=== PATIENT | female | born 1960 | race African-American/Black ===

== ENCOUNTER 2016-05-20 07:30 | Inpatient (IN) ==
--- NOTE | 2016-05-14 14:26 | EKG Report ---
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
[2016-06-03] MEDS ORDERED: DIAZEPAM 5 MG TABLET PO ONE (05:57)
[2016-06-03] MEDS ORDERED: FAMOTIDINE 20 MG TABLET PO ONE (05:57)
[2016-06-03] MEDS ORDERED: ceFAZolin 1,000 MG VIAL ONE (05:59)
[2016-06-03] MEDS ORDERED: SODIUM CHLORIDE 0.9% 250 ML IV SCH (06:00)
[2016-06-03] MEDS ORDERED: DIAZEPAM 5 MG TABLET ONE (06:33)
[2016-06-03] MEDS ORDERED: FAMOTIDINE 20 MG TABLET ONE (06:34)
--- NOTE | 2016-06-03 06:51 | History and Physical Update ---
History and Physical Update - History and Physical H&P was reviewed, the patient examined and there: are no changes in the patients condition since last H&P was completed.
[2016-06-03] MEDS ORDERED: BUPIVACAINE MPF 0.25% /EPI 30 ML VIAL ONE (06:53)
[2016-06-03] MEDS ORDERED: LIDOCAINE 1%/EPI INJ 20 ML VIAL ONE (06:53)
[2016-06-03] MEDS ORDERED: LIDOCAINE 2% 5 ML VIAL ONE (07:05)
[2016-06-03] MEDS ORDERED: ONDANSETRON 4 MG/2 ML VIAL ONE (07:05)
[2016-06-03] MEDS ORDERED: PROPOFOL 200 MG/20 ML VIAL IV ONE (07:05)
[2016-06-03] MEDS ORDERED: ROCURONIUM 100 MG/10 ML VIAL IV ONE (07:05)
[2016-06-03] MEDS ORDERED: TISSUE ADHESIVE 1 EACH APPLICATOR TOP ONE (07:43)
--- NOTE | 2016-06-03 08:16 | Fluoroscopy Report ---
Exam: FL cholangiogram in surgery Date: 06/03/2016 12:00 AM Comparison: None Indication: Abdomen pain Technique:[Fluoroscopy time of 20.8 seconds documented. 119 images obtained.] Findings: Nonionic contrast material was injected into the dilated bile ducts by Dr. Mandy FAITH. Multiple filling defects are identified including the cystic duct and CBD.. Contrast in the duodenum. Impression: Choledocholithiasis with associated dilatation of the bile ducts. PROCEDURE INTERPRETED AT [facility] DEPARTMENT OF RADIOLOGY Final Report Signed by: Dr. Donna Jarrell
[2016-06-03] MEDS ORDERED: MORPHINE 2 MG/1 ML SYRINGE IV PRN (08:21)
[2016-06-03] MEDS ORDERED: ONDANSETRON 4 MG/2 ML VIAL IV PRN ×2 (08:21→08:52)
--- NOTE | 2016-06-03 08:30 | Operative Note ---
Date of procedure: 06/03/16 Pre-op diagnosis: cholelithiasis with chronic cholecystitis Post-op diagnosis: other (cholelithiasis with choledocholithiasis) Procedure: Laparoscopic cholecystectomy with intraoperative cholangiogram and extensive lysis of perihepatic adhesions Findings and technique: After informed consent was obtained the patient was brought the operating room and placed in supine position. After successful induction with general anesthesia which was tolerated well hemodynamically patient abdomen was prepped and draped in usual sterile fashion. Local anesthesia was infiltrated at the umbilicus where an open technique was used and the inner the peritoneal cavity under direct vision the patient was noted to have extensive intra-abdominal adhesions above the umbilicus. These were carefully dissected free and a Amee cannula inserted and a pneumoperitoneum was established. Camera was inserted and the right upper quadrant visualized. There were extensive perihepatic adhesions which limited the mobility of the liver. These adhesions over the left and right lobes of the liver were sharply taken down. No bleeding occurred with this dissection. The patient had a very large redundant gallbladder was grasped and retracted upwards over the liver. The neck of the gallbladder was grasped and retracted laterally and the peritoneum over the neck of the gallbladder was incised. Patient had a long tapering neck of her gallbladder. The cystic artery was identified branching over the medial neck of the gallbladder. The common bile duct could be visualized medially. I dissected free the neck of the gallbladder and acchieved the critical view of safety before incising any structures. The gallbladder neck was incised and a cholangiogram then obtained under fluoroscopy which showed a large nonobstructing distal common bile duct stone. There was flow of contrast into the duodenum. The neck of the gallbladder was transected and I secured the gallbladder neck with a free tied chromic Endoloop. The gallbladder was dissected free from the liver bed after the cystic artery was triply clipped and divided. The gallbladder was placed in an Endo Catch bag and removed through the umbilical port site. Right upper quadrant was liberally irrigated suctioned dry and no bleeding or bile leakage noted. I did discuss this case with Dr. hernandez from GI and we have arranged for postoperative ERCP which I think would be preferable than a likely large open procedure in this patient with severe medical comorbidities. No bleeding was noted in the liver bed which was inspected and irrigated for about 5-10 minutes. The ports were removed and no bleeding noted from the port sites. Gas was evacuated from the abdomen and the fascial defect at the umbilicus closed with a running 0 Monocryl suture. This was a much more difficult procedure than usual because of the extensive perihepatic adhesions and the large size of the gallbladder. There was also adhesions at the umbilicus which had to be dealt with. These factors all added to the complexity and time associated with the case. These factors essentially doubled the expected operative time. She appeared to tolerate the procedure well however and had no apparent complications. Arrangements have been made for postoperative ERCP. Anesthesia: GETA, local Surgeon / Physician: Home Galvan III. Estimated blood loss: minimal Specimens: other (gallbladder) Condition: stable Disposition: PACU Discharge Plan - Discharge Medications No Action Hydrocodone/Acetaminophen [Hydrocodon-Acetaminophen 5-325] 1 each PO Q6H PRN PRN Reason: Pain traMADol TAB [Ultram] 1 tablet PO Q6H PRN PRN Reason: Pain Oxybutynin [Ditropan] 5 mg PO DAILY NIFEdipine [Nifedipine ER] 60 mg PO DAILY Hydroxychloroquine [Plaquenil] 200 mg PO BID predniSONE TAB [PredniSONE] 5 mg PO DAILY Pantoprazole Tab [Protonix Tab] 40 mg PO DAILY Losartan Potassium 50 mg PO DAILY Triamcinolone 0.1% Cream [Kenalog 0.1% Cream] 1 applic TOP BID Nebivolol [Bystolic] 10 mg PO BID - Follow Up or Referral - Forms/Instructions
--- NOTE | 2016-06-03 08:39 | Anesthesia ---
Anesthesia Post OP - Post Ansesthetic Evaluation Patient seen in post op: Yes Resp: within normal limits CV: within normal limits Mental: within normal limits Temp: within normal limits Mgke-Lo-Iybnbwkyo: within normal limits Nausea and Vomiting: within normal limits Pain: within normal limits
[2016-06-03] MEDS ORDERED: ACETAMINOPHEN 1,000 MG/100 ML VIAL IV ONE (08:41)
[2016-06-03] MEDS ORDERED: SEVOFLURANE 1 UNIT/15 MINUTE INH ONE (08:41)
[2016-06-03] MEDS ORDERED: fentaNYL 100 MCG/2 ML VIAL ONE (08:41)
[2016-06-03] MEDS ORDERED: MIDAZOLAM 2 MG/2 ML VIAL ONE (08:41)
[2016-06-03] MEDS ORDERED: LACTATED RINGERS 1,000 ML IV SCH (09:00)
[2016-06-03] MEDS: HYDROmorphone 2 MG/1 ML VIAL IV PRN ×2 (09:02→09:14)
[2016-06-03 11:19] LABS: Basophils % 0.2 % (0.0-0.8); Eosinophils # 0.1 10*3/uL (0.0-0.87); Eosinophils % 1.9 % (0.00-10.9); Hematocrit 39.4 VOL% (35.7-47.0); Hemoglobin 11.8 GM/DL (12.0-16.0); Immature Granulocytes % 0.4 %; Immature Granulocytes Absolute 0.02 #; Lymphocytes # 0.6 10*3/uL (1.4-4.0); Lymphocytes % 11.3 % (21.3-54.2); Mean Corpuscular HGB Conc 29.9 GM/DL (32-36); Mean Corpuscular Hemoglobin 26 PG (27-34); Mean Corpuscular Volume 88.1 FL (87-102); Mean Platelet Volume 11.1 FL (9.6-12.0); Monocytes # 0.1 10*3/uL (0.11-0.8); Monocytes % 1.7 % (1.7-12.7); Neutrophils # 4.6 10*3/uL (1.4-7.4); Neutrophils % 84.5 % (38.7-73.9); Platelet Count 203 T/CUMM (130-400); Red Blood Count 4.47 MC/CUMM (3.8-5.5); Red Cell Distribution Width 14.3 % (9.3-17.3); White Blood Count 5.4 T/CUMM (4-12)
[2016-06-03 11:48] LABS: Albumin 3.2 G/DL (3.4-5.0); Bilirubin,Total 0.4 MG/DL (0.2-1.0); Calcium 8.3 MG/DL (8.5-10.1); Osmolality,Calculated 290.7 MOS/KG (273-304); Potassium 4.1 MMOL/L (3.5-5.1); Total Protein 7.9 G/DL (6.4-8.3)
[2016-06-03] MEDS ORDERED: cefOXitin 1,000 MG in SODIUM CHLORIDE 0.9% 100 ML IV SCH (12:23)
--- NOTE | 2016-06-03 13:41 | Gastrointestinal Consult Note ---
Assessment and Plan (1) Choledocholithiasis Status: Acute Assessment and plan: 06/03-Several month history of abd pain with nausea, with findings of gallstones. Post op lap derrick today with findings on intraoperative cholangiogram of filling defects of cystic duct and CBD. Normal LFTs with elevated alk phos. Plan for ERCP tomorrow to further evaluate. Procedure details as well as risks discussed. Plan and addendum to follow by Dr Cervantes. Current Visit: Yes History of Present Illness Chief complaint: Choledocholithiasis History of present illness: Ms. Gutierrez is a 55 year old female who presented to the hospital for laparoscopic cholecystectomy. She states that she has had abdominal pain off and on for the past year with episodes of associated nausea and vomiting. She state the pain occurred mostly with eating with intermittent epigastric pain as well as nausea. The pain did not radiate to her back. She states she did feel better if she just did not eat. She denies any fever, chills or weight loss associated with this. She states that she was found several months ago to have gallstones and states at that time she was not ready to proceed with surgery. She underwent lap derrick today with intraoperative cholangiogram as well as extensive lysis of perihepatic lesions. The cholangiogram report showed filling defects of the cystic duct and the CBD and she was referred for ERCP. She is noted to have normal LFTS other than an elevated alkaline phosphatase at 169. Home Medications Medication Instructions Recorded Confirmed Type Hydrocodone/Acetaminophen 1 each PO Q6H PRN 02/20/15 06/03/16 History [Hydrocodon-Acetaminophen 5-325] Hydroxychloroquine [Plaquenil] 200 mg PO BID 02/20/15 06/03/16 History Losartan Potassium 50 mg PO DAILY 02/20/15 06/03/16 History NIFEdipine [Nifedipine ER] 60 mg PO DAILY 02/20/15 06/03/16 History Nebivolol [Bystolic] 10 mg PO BID 02/20/15 06/03/16 History Oxybutynin [Ditropan] 5 mg PO DAILY 02/20/15 06/03/16 History Pantoprazole Tab [Protonix Tab] 40 mg PO DAILY 02/20/15 06/03/16 History Triamcinolone 0.1% Cream [Kenalog 1 applic TOP BID 02/20/15 06/03/16 History 0.1% Cream] predniSONE TAB [PredniSONE] 5 mg PO DAILY 02/20/15 06/03/16 History traMADol TAB [Ultram] 1 tablet PO Q6H PRN 02/20/15 06/03/16 History Allergies Allergy/AdvReac Type Severity Reaction Status Date / Time No Known Allergies Allergy Verified 05/14/16 13:41 Medical,Surgical,& Family Hx - Medical History Cardio: History of: Cardiac Dysrhythmia (FAST HEARTRATE), CHF, Hypertension, Cardiovascular Problems (DR MANRIQUEZ. LAST VISIT 03/2016.) Neurology: No history of: Seizures HEENT: History of: Eye Problem (GLASSES, DRY EYES HX OF STEROID DROPS IN PAST) Rheumatology: History of;: Systemic Lupus Erythematosus Respiratory: History of: Bronchitis (PAST HX), Pneumonia (PAST HX), Respiratory Problems (CHRONIC COUGH. SEEING DR KIM 05/13/2015. FLU VAC- NO; PNEU-YES.) Renal: History of: Renal Failure (pt states that she is not dialysis. DR CANTU LAST VISIT 05/06/2016.) Genitourinary: History of: Recurring Urinary Tract Infections (LAST INFECTION .) Gastrointestinal: History of: GERD - Surgical History Abdominal Surgeries: Surgical HX of: Cholecystectomy, Colonoscopy (2011) Reproductive Surgeries: Surgical HX of;: Section (X4), Tubal Ligation - Family History Family History: Reports;: Family Hypertension - Social History Smoking Status: Never smoker Frequency of Alcohol Use: Frequently Type of Drug Use: None 12 point system: reviewed and no additional remarkable complaints except as stated - Constitutional Constitutional: Present: as per HPI - EENT Eyes: Present: as per HPI Ears: Present: as per HPI Nose, mouth and throat: Present: as per HPI - Cardiovascular Cardiovascular: Present: as per HPI - Respiratory Respiratory: Present: as per HPI - Gastrointestinal Gastrointestinal: Present: as per HPI, abdominal pain, nausea - Genitourinary Genitourinary: Present: as per HPI - Musculoskeletal Musculoskeletal: Present: as per HPI - Neurological Neurological: Present: as per HPI - Psychiatric Psychiatric: Present: as per HPI - Endocrine Endocrine: Present: as per HPI - Hematologic/Lymphatic Hematologic/Lymphatic: Present: as per HPI Exam - Constitutional Vitals: Period Temp Pulse Resp BP Sys/Ovalle Pulse Ox Last 24 Hr 97.7 F-98.6 F 77-92 16-27 114-148/82-105 95-100 General appearance: normal weight, no acute distress - Head Head exam: Present: normal inspection, normocephalic - Eye Eye exam: Present: other (lids and conjuncitva unremarkable). Absent: scleral icterus - ENT ENT exam: Present: normal exam, normal oropharynx - Neck Neck exam: Present: normal inspection - Respiratory Respiratory exam: Present: clear to auscultation bilaterally. Absent: rales, rhonchi, wheezes - Cardiovascular Cardiovascular exam: Present: regular rate and rhythm. Absent: diastolic murmur , JVD, systolic murmur - GI/Abdominal GI/Abdominal exam: Present: normal bowel sounds, tenderness, soft. Absent: ascites, distended, mass, organomegaly - Extremities Exam Extremities exam: Present: normal inspection, full ROM - Back Exam Back exam: Present: normal inspection - Neurological Exam Neurological exam: Present: alert, oriented X3 - Psychiatric Psychiatric exam: Present: normal affect, normal mood - Skin Skin exam: Present: normal color, warm, dry Results - Labs CBC & BMP: 06/03/16 10:27 06/03/16 10:27 Lab Results: I have reviewed the past 24 hour labs Quality Measures - VTE Contraindication to Pharmacological VTE Prophylaxis: High Risk of Bleeding
[2016-06-03 17:10] LABS: Hematocrit 39.9 VOL% (35.7-47.0); Hemoglobin 12.2 GM/DL (12.0-16.0)
[2016-06-03] MEDS: cefOXitin 1,000 MG in SODIUM CHLORIDE 0.9% 100 ML IV SCH ×2 (17:53→23:53)
[2016-06-04 01:24] LABS: Hematocrit 35.9 VOL% (35.7-47.0); Immature Granulocytes % 0.3 %; Immature Granulocytes Absolute 0.03 #; Lymphocytes # 0.6 10*3/uL (1.4-4.0); Lymphocytes % 6.4 % (21.3-54.2); Mean Corpuscular HGB Conc 30.6 GM/DL (32-36); Mean Corpuscular Hemoglobin 26 PG (27-34); Mean Corpuscular Volume 86.3 FL (87-102); Mean Platelet Volume 11.3 FL (9.6-12.0); Monocytes # 0.7 10*3/uL (0.11-0.8); Monocytes % 7.6 % (1.7-12.7); Neutrophils # 7.7 10*3/uL (1.4-7.4); Neutrophils % 85.7 % (38.7-73.9); Platelet Count 181 T/CUMM (130-400); Red Blood Count 4.16 MC/CUMM (3.8-5.5); Red Cell Distribution Width 14.3 % (9.3-17.3)
[2016-06-04] MEDS: cefOXitin 1,000 MG in SODIUM CHLORIDE 0.9% 100 ML IV SCH ×2 (05:52→11:42)
--- NOTE | 2016-06-04 07:35 | Family Practice Progress Note ---
Family Practice - PN: Subj Interval history: Patient is doing fine this morning states she is not having any increased abdominal pain. She denies nausea vomiting this morning she is scheduled for ERCP today and can probably go home later today barring complications. Exam (Progress Note) - Constitutional Vitals: Period Temp Pulse Resp BP Sys/Ovalle Pulse Ox Last 24 Hr 97.1 F-98.6 F 70-92 16-27 103-150/61-105 92-100 Exam: Objectively well-developed black female no acute distress. She is able give good history. She states she is hungry. Cardiovascular: Heart rate is regular there is no murmurs or gallops. Respiratory: Lungs clear to auscultation bilaterally. Abdomen: Abdomen soft and nontender Results - Labs CBC & BMP: 06/04/16 00:36 06/04/16 00:36 Lab Results: I have reviewed the past 24 hour labs Assessment and Plan (1) Choledocholithiasis Status: Acute Assessment and plan: 06/04/2016: Patient scheduled for ERCP today. Current Visit: Yes Quality Measures - VTE Contraindication to Pharmacological VTE Prophylaxis: High Risk of Bleeding
--- NOTE | 2016-06-04 11:05 | Event Note ---
She feels well. She has minimal pain. She is afebrile with stable vital signs and her abdomen is benign. She is for ERCP today.
--- NOTE | 2016-06-04 11:15 | Pathology Report from [facility] ---
ACCESSION # : [id number] PATIENT NAME : Lata Gutierrez ORDERING DR : HESHAM SINGH III, MD CLINICAL HX: Cholelithiasis POST-OP DX: Same SPECIMEN INFO: Gallbladder GROSS DESCRIPTION: The specimen is received in formalin labeled with the patient 's name Lata Gutierrez consists of an intact gallbladder measuring 14.8 x 2.5 cm. The serosa is smooth and aponte. The gallbladder wall has an average thickness of 0.2 cm. The mucosal surface is velvety and red khanna. The lumen is filled with hyperemic yellow bile with multiple stones noted measuring 2.0 x 1.5 cm in aggregate. Supervisor Logging sections are submitted in one cassette. DIAGNOSIS FOR LATA GUTIERREZ: GALLBLADDER: Chronic cholecystitis. Cholelithiasis. No evidence of malignancy. SERVICE DATE: 06/03/2016 REPORT DATE: 06/04/2016 PATHOLOGIST: Addis Madrid III, M.D. MTDD
[2016-06-04] MEDS ORDERED: fentaNYL 100 MCG/2 ML VIAL ONE (13:07)
[2016-06-04] MEDS ORDERED: MIDAZOLAM 2 MG/2 ML VIAL ONE (13:08)
--- NOTE | 2016-06-04 13:17 | History and Physical Update ---
History and Physical Update - History and Physical H&P was reviewed, the patient examined and there: are no changes in the patients condition since last H&P was completed. - Physical Exam Mental Status: alert and oriented Heart: regular rate and rhythm Lung: clear to auscultation Abdomen: other (Appropriate abdominal tenderness after cholecystectomy) Vitals: within normal limits
[2016-06-04] MEDS ORDERED: PROPOFOL 500 MG/50 ML BOTTLE IV ONE (13:20)
[2016-06-04] MEDS ORDERED: LIDOCAINE 2% 5 ML VIAL ONE (13:20)
[2016-06-04] MEDS ORDERED: GLUCAGON 1 MG VIAL ONE (13:38)
--- NOTE | 2016-06-04 14:00 | Operative Note ---
Date of procedure: 06/04/16 Pre-op diagnosis: Choledocholithiasis Procedure: Procedure: Endoscopic retrograde cholangiopancreatography with common bile duct sphincterotomy and common bile duct stone removal with balloon Brief clinical abstract: Patient is a 55-year-old female with recent symptomatic gallstones. At cholecystectomy yesterday she had a large common bile duct stone noted. Liver tests preoperatively have been normal other than mildly elevated alkaline phosphatase. Procedure findings: After informed consent was obtained, patient was placed in the prone position. Therapeutic video duodenoscope was inserted in the upper esophagus in blind fashion with no resistance encountered. Esophageal mucosa appeared normal. Stomach was examined including retraction of the cardia and fundus with no abnormality seen. The pyloric channel, duodenal bulb, second and third portion of the duodenum including the appearance of the ampulla were normal. Sphincterotome was used and common bile duct selectively cannulated with deep cannulation achieved. 0.035 inch guidewire was advanced into the intrahepatic system. Biliary tree was filled with contrast. Right and left intrahepatic ducts were mildly dilated. Common bile duct and common hepatic duct were dilated to over 10 mm maximally. Cystic duct remnant was partially filled. There was a fairly large 12-15 mm filling defect in the proximal bile duct consistent with stone. Common bile duct sphincterotomy to over 12 mm diameter was performed over guidewire. No significant bleeding was noted. Occlusion balloon was advanced over the wire into the proximal common hepatic duct. This was dragged distally and stone passed into the duodenum. Occlusion cholangiogram was obtained afterwards with no other filling defects seen. There was excellent drainage through the sphincterotomy opening. Pancreatogram was not performed. The endoscope was removed and she appeared to tolerate the procedure well. Impression: Choledocholithiasis-status post endoscopic removal Recommendations: Could probably discharge from my standpoint if comfortable after recovery time. (stone in duodenum)---------------------------------> F Anesthesia: MAC Surgeon / Physician: Mario Castaneda Estimated blood loss: minimal Specimens: none sent Condition: stable Disposition: post procedure unit Results - Labs CBC & BMP: 06/04/16 00:36 06/04/16 00:36 Discharge Plan - Discharge Medications No Action Hydrocodone/Acetaminophen [Hydrocodon-Acetaminophen 5-325] 1 each PO Q6H PRN PRN Reason: Pain traMADol TAB [Ultram] 1 tablet PO Q6H PRN PRN Reason: Pain Oxybutynin [Ditropan] 5 mg PO DAILY NIFEdipine [Nifedipine ER] 60 mg PO DAILY Hydroxychloroquine [Plaquenil] 200 mg PO BID predniSONE TAB [PredniSONE] 5 mg PO DAILY Pantoprazole Tab [Protonix Tab] 40 mg PO DAILY Losartan Potassium 50 mg PO DAILY Triamcinolone 0.1% Cream [Kenalog 0.1% Cream] 1 applic TOP BID Nebivolol [Bystolic] 10 mg PO BID - Follow Up or Referral - Forms/Instructions
--- NOTE | 2016-06-04 14:01 | Anesthesia ---
Anesthesia Post OP - Post Ansesthetic Evaluation Patient seen in post op: Yes Resp: within normal limits CV: within normal limits Mental: within normal limits Temp: within normal limits Bjmd-Xj-Wnwlauhpz: within normal limits Nausea and Vomiting: within normal limits Pain: within normal limits
--- NOTE | 2016-06-04 14:38 | Fluoroscopy Report ---
Exam: FL ERCP w sphincterotomy Date: 06/04/2016 1:43 PM Indication: Filling defects on recent intraoperative cholangiogram 06/03/2016 Comparison: None Findings: 3 minutes 57 seconds fluoroscopy time and 40 cc of Omnipaque 240 were utilized. Endoscope was passed by Dr. Bernardino Castaneda and retrograde filling of the CBD was performed. The cystic duct remnant was demonstrated no extravasation of contrast is present. Sphincterotomy was performed and a large filling defect is present. Completion exam reveals filling of the left right biliary radicals. Some suggestion of small defects residual remained could represent air bubbles or small stones. Impression: 1. Choledocholithiasis with sphincterotomy performed. PROCEDURE INTERPRETED AT [facility] [place] DEPARTMENT OF RADIOLOGY Final Report Signed by: Dr. Mario Barnes
--- NOTE | 2016-06-04 16:42 | Discharge Summary ---
Hospital Course - Hospital Course Hospital Course: 55-year-old -[place] female admitted by Dr. Mandy FAITH with chronic Cholelithiasis with cholecystitis. She was sent to Dr. Galvan office by Dr. Jose Manuel Hadley for evaluation of symptomatic cholecystitis. She was admitted and taken to the operating room on 06/03/[address] Mandy FAITH performed a laparoscopic cholecystectomy with intraoperative cholangiogram. he also did an extensive lysis of perihepatic adhesions. She had some choledocholithiasis status post surgery so Dr. Castaneda was consulted and he performed an ERCP with endoscopic stone removal on 06/04/2016. With patient's significant heart history she was held overnight for observation and she should be ready for discharge on 06/05/2016. We will discharge her with a one-week follow-up with Dr. Mandy FAITH and pain medicine. Discharge instructions were given to the patient and her in the room. - Time spent with patient Time with patient DS: Less than 30 minutes Discharge Plan - Discharge Data Disposition: Disch To Home/Self Care Condition at Discharge: Stable Discharge Diet: advance to your usual diet Activity: increase activity as tolerated, no lifting Hygiene: may shower Driving: other (no driving if taking pain pills) Contact your physician if you experience:: fever over 101, Nausea/Vomiting Wound / Dressing Care Instructions: ok to shower daily w mild soap and water, pat dry. ok to leave open to the air or cover prn w bandaids. - Discharge Medications Continue traMADol TAB [Ultram] 1 tablet PO Q6H PRN PRN Reason: Pain Oxybutynin [Ditropan] 5 mg PO DAILY NIFEdipine [Nifedipine ER] 60 mg PO DAILY Hydroxychloroquine [Plaquenil] 200 mg PO BID predniSONE TAB [PredniSONE] 5 mg PO DAILY Pantoprazole Tab [Protonix Tab] 40 mg PO DAILY Losartan Potassium 50 mg PO DAILY Triamcinolone 0.1% Cream [Kenalog 0.1% Cream] 1 applic TOP BID Nebivolol [Bystolic] 10 mg PO BID Hydrocodone/Acetaminophen [Hydrocodon-Acetaminophen 5-325] 1 each PO Q6H PRN #30 PRN Reason: Pain - Follow Up or Referral Follow Up: Home Galvan III., MD [Physician] - 1 Week Jose Manuel Hadley MD [Physician] - (see if dr hadley needs fu) - Forms/Instructions Exam - Constitutional Vitals: Period Temp Pulse Resp BP Sys/Ovalle Pulse Ox Last 24 Hr 97.9 F-98.8 F 62-82 16-23 102-150/61-102 96-100 Discharge Results Labs on day of discharge: Labs from last 24 hours 06/04/16 06/04/16 06/04/16 00:36 00:36 00:36 WBC 9.0 D RBC 4.16 Hgb 11.0 L Hct 35.9 MCV 86.3 L MCH 26 L MCHC 30.6 L RDW 14.3 Plt Count 181 MPV 11.3 Neut % (Auto) 85.7 H Lymph % (Auto) 6.4 L [place] % (Auto) 7.6 Eos % (Auto) 0.0 Baso % (Auto) 0.0 Neut # (Auto) 7.7 H Lymph # (Auto) 0.6 L [place] # (Auto) 0.7 Eos # (Auto) 0.0 Baso # (Auto) 0.0 Immature Gran % 0.3 Nucleated RBC % 0.0 Immature Gran # 0.03 Nucleated RBCs # 0.00 INR 1.0 PT Patient/Control Mix 11.0 Potassium 4.8 06/03/16 16:29 WBC RBC Hgb 12.2 Hct 39.9 MCV MCH MCHC RDW Plt Count MPV Neut % (Auto) Lymph % (Auto) [place] % (Auto) Eos % (Auto) Baso % (Auto) Neut # (Auto) Lymph # (Auto) [place] # (Auto) Eos # (Auto) Baso # (Auto) Immature Gran % Nucleated RBC % Immature Gran # Nucleated RBCs # INR PT Patient/Control Mix Potassium DS: Provider Date of admission: 06/03/16 06:14 Primary care physician: . No PCP Attending physician on admission: Home Galvan III., Consults: 06/03/16 08:21 Consult to Physician [CONS] Routine Comment: Consulting Provider: Jose Manuel Hadley Consulting Provider Notified: Yes When should Consulting Provider be notified: Now Person Notified: alannah called Date Notified: 06/03/16 Time Notified: 10:27 Consult to Physician [CONS] Routine Comment: common bile duct stone Consulting Provider: Mario Castaneda Consulting Provider Notified: Yes When should Consulting Provider be notified: Now Person Notified: pauly called Date Notified: 06/03/16 Time Notified: 10:22 06/03/16 12:46 Consult to Pharmacy [CONS] Routine Reason for Pharmacy Consult: Adjust Meds Renal Funct Discharging clinician: LANETTE Medina Expected date of discharge: 06/05/16
[2016-06-04] MEDS ORDERED: traMADol 50 MG TABLET PO PRN (16:47)
[2016-06-04] MEDS ORDERED: PHENOL 1.4% THROAT SPRAY 177 ML BOTTLE PO PRN (16:48)
[2016-06-04] MEDS: OXYBUTYNIN 5 MG TABLET PO SCH (17:14)
[2016-06-04] MEDS: LOSARTAN 50 MG TABLET PO SCH (17:14)
[2016-06-04] MEDS: predniSONE 5 MG TABLET PO SCH (17:14)
[2016-06-04] MEDS: PANTOPRAZOLE 40 MG TABLET PO SCH (17:14)
--- NOTE | 2016-06-04 18:43 | Event Note ---
Patient alert and comfortable with no complaint of abdominal pain or nausea. On exam her abdomen is soft and nontender. She appears stable after ERCP earlier today. I will sign off. Please call if needed.
[2016-06-04] MEDS: TRIAMCINOLONE 0.1% CREAM 15 GM TUBE TOP SCH (20:39)
[2016-06-04] MEDS: NEBIVOLOL 5 MG TABLET PO SCH (20:39)
[2016-06-04] MEDS: HYDROXYCHLOROQUINE 200 MG TABLET PO SCH (20:39)
--- NOTE | 2016-06-05 07:38 | Event Note ---
She feels well. Her vital signs are stable. She has no chest pain and no abdominal pain. We will discharge her home with plans to follow-up in my office in one week
[2016-06-05] MEDS: OXYBUTYNIN 5 MG TABLET PO SCH (09:00)
[2016-06-05] MEDS: predniSONE 5 MG TABLET PO SCH (09:00)
[2016-06-05] MEDS: HYDROXYCHLOROQUINE 200 MG TABLET PO SCH (09:00)
[2016-06-05] MEDS: PANTOPRAZOLE 40 MG TABLET PO SCH (09:01)
[2016-06-05] MEDS: NEBIVOLOL 5 MG TABLET PO SCH (09:03)
[2016-06-05] MEDS: LOSARTAN 50 MG TABLET PO SCH (09:03)
[2016-06-05] MEDS: TRIAMCINOLONE 0.1% CREAM 15 GM TUBE TOP SCH (09:03)
[2016-06-05 09:07] VITALS: BP 90/60
== END 2016-06-05 10:45 | disposition home or self-care (01) | DRG 418 ==
LOC: N.OR 06-03 06:14 → N.SDSINP 06-03 06:14 → EDSTATUS 06-03 07:30 → N.3E 06-03 08:21
PROVIDERS: ADMIT Surgery; ATTEND Surgery
PROC: LAPCHOL (2016-06-03 07:05)
PROC: ERCPWSP (ICD-10-PCS; 2016-06-04 12:35)

== ENCOUNTER 2018-06-13 03:29 | Inpatient (IN) ==
[2018-06-13] MEDS ORDERED: SODIUM CHLORIDE 0.9% 1,000 ML IV STA ×2 (04:10→05:41)
[2018-06-13 04:14] LABS: Basophils % 0.1 % (0.0-0.8); Eosinophils # 0.1 10*3/uL (0.0-0.87); Eosinophils % 0.6 % (0.00-10.9); Hematocrit 43.2 VOL% (35.7-47.0); Hemoglobin 13.2 GM/DL (12.0-16.0); Immature Granulocytes % 1.3 %; Immature Granulocytes Absolute 0.17 #; Lymphocytes # 0.3 10*3/uL (1.4-4.0); Lymphocytes % 2.3 % (21.3-54.2); Mean Corpuscular HGB Conc 30.6 GM/DL (32-36); Mean Corpuscular Hemoglobin 29 PG (27-34); Mean Corpuscular Volume 94.3 FL (87-102); Mean Platelet Volume 10.5 FL (9.6-12.0); Monocytes # 0.9 10*3/uL (0.11-0.8); Monocytes % 6.5 % (1.7-12.7); Neutrophils # 11.9 10*3/uL (1.4-7.4); Neutrophils % 89.2 % (38.7-73.9); Platelet Count 115 T/CUMM (130-400); Red Blood Count 4.58 MC/CUMM (3.8-5.5); Red Cell Distribution Width 12.6 % (9.3-17.3); White Blood Count 13.4 T/CUMM (4-12)
[2018-06-13 04:18] LABS: INR 1.1; PT Patient Result 12.4 SECS; Partial Thromboplastin Time 26.1 SECS (0-40)
[2018-06-13 04:30] LABS: Albumin 3.1 G/DL (3.4-5.0); Bilirubin,Total 0.9 MG/DL (0.2-1.0); Calcium 8.3 MG/DL (8.5-10.1); Osmolality,Calculated 282.5 MOS/KG (273-304); Potassium 3.7 MMOL/L (3.5-5.1); Total Protein 7.3 G/DL (6.4-8.3)
[2018-06-13 04:42] LABS: Apearance,Urine CLOUDY (Clear); Bacteria,Urine Occasional /HPF (Few); Bilirubin,Urine Negative (Negative); Blood, Urine Small mg/dL (Negative); Glucose,Urine (UA) Negative (Negative); Ketones,Urine 5 mg/dL (Negative); Mucus,Urine Occasional /LPF (Occasional); Nitrite,Urine Negative (Negative); Protein,Urine 30 MG/DL; RBC,Urine 1 /HPF (0-4); Urine Color Amber (Yellow); Urine Specific Gravity 1.015 (1.001-1.035); Urine Urobilinogen < 2.0 EU/DL (0.2-1.0); WBC,Urine 6 /HPF (0-6)
[2018-06-13 05:06] LABS: Band Neutrophils 5 % (0-10); Eosinophils 1 % (0-10); Hypochromasia 1+; Lymphocytes 2 % (20-55); Platelet Estimate Decreased; Segmented Neutrophils 87 % (50-85); Total Cells Counted 100
[2018-06-13] MEDS ORDERED: ACETAMINOPHEN 500 MG TABLET PO STA (05:32)
[2018-06-13] MEDS ORDERED: ONDANSETRON 4 MG/2 ML VIAL IV PRN (06:03)
[2018-06-13] MEDS ORDERED: LEVOFLOXACIN INJ 500 MG in PREMIX 1 EACH IV ONE (06:10)
[2018-06-13] MEDS ORDERED: HEPARIN 5,000 UNIT/1 ML VIAL SUBCUT SCH (06:30)
[2018-06-13 07:15] LABS: Risk Ratio 2.03; Thyroid Stimulating Hormone 0.167 uIU/ml (0.358-3.74); VLDL CHOLESTEROL 25.6 MG/DL
[2018-06-13] MEDS: SODIUM CHLORIDE 0.9% 1,000 ML IV SCH ×3 (08:30→20:57)
[2018-06-13] MEDS: ASPIRIN 325 MG TABLET PO SCH (08:30)
[2018-06-13] MEDS: PANTOPRAZOLE 40 MG TABLET PO SCH (08:30)
[2018-06-13] MEDS ORDERED: NEBIVOLOL 10 MG TABLET PO SCH (09:00)
[2018-06-13] MEDS: ROSUVASTATIN 10 MG TABLET PO SCH (10:05)
[2018-06-13] MEDS: azaTHIOprine 50 MG TABLET PO SCH ×2 (10:05→20:53)
[2018-06-13] MEDS: FOLIC ACID 1 MG TABLET PO SCH (10:05)
[2018-06-13] MEDS: HYDROXYCHLOROQUINE 200 MG TABLET PO SCH ×2 (10:05→20:53)
[2018-06-13] MEDS ORDERED: MAGNESIUM SULF RIDER 4 GM in PREMIX 1 EACH IV PRN (12:18)
[2018-06-13] MEDS: ACETAMINOPHEN 325 MG TABLET PO PRN ×2 (16:59→23:07)
[2018-06-13] MEDS: ENOXAPARIN 30 MG/0.3 ML SYRINGE SUBCUT SCH (20:53)
[2018-06-13] MEDS: MAGNESIUM OXIDE 400 MG TABLET PO SCH (20:53)
[2018-06-13] MEDS: DICYCLOMINE 10 MG CAPSULE PO SCH (20:53)
[2018-06-13] MEDS: MAGNESIUM SULF RIDER 2 GM in PREMIX 1 EACH IV PRN (20:54)
[2018-06-13] MEDS ORDERED: FUROSEMIDE 40 MG TABLET PO SCH (21:00)
[2018-06-13] MEDS ORDERED: MAGNESIUM OXIDE 400 MG TABLET PO SCH (21:00)
[2018-06-13] MEDS: POTASSIUM CHLORIDE RIDER 10 MEQ in PREMIX 1 EACH IV PRN (23:06)
[2018-06-14] MEDS: POTASSIUM CHLORIDE RIDER 10 MEQ in PREMIX 1 EACH IV PRN (00:19)
[2018-06-14] MEDS: ACETAMINOPHEN 325 MG TABLET PO PRN ×2 (05:33→20:47)
[2018-06-14 05:34] LABS: Basophils % 0.1 % (0.0-0.8); Eosinophils # 0.4 10*3/uL (0.0-0.87); Eosinophils % 3.7 % (0.00-10.9); Hematocrit 31.1 VOL% (35.7-47.0); Hemoglobin 9.7 GM/DL (12.0-16.0); Immature Granulocytes % 0.5 %; Immature Granulocytes Absolute 0.05 #; Lymphocytes # 0.2 10*3/uL (1.4-4.0); Lymphocytes % 2.1 % (21.3-54.2); Mean Corpuscular HGB Conc 31.2 GM/DL (32-36); Mean Corpuscular Hemoglobin 29 PG (27-34); Mean Platelet Volume 10.5 FL (9.6-12.0); Monocytes # 0.5 10*3/uL (0.11-0.8); Monocytes % 5.2 % (1.7-12.7); Neutrophils # 8.7 10*3/uL (1.4-7.4); Neutrophils % 88.4 % (38.7-73.9); Red Blood Count 3.38 MC/CUMM (3.8-5.5); Red Cell Distribution Width 12.7 % (9.3-17.3); White Blood Count 9.9 T/CUMM (4-12)
[2018-06-14 05:47] LABS: Platelet Count 85 T/CUMM (130-400)
[2018-06-14 05:51] LABS: Albumin 2.1 G/DL (3.4-5.0); Bilirubin,Total 0.4 MG/DL (0.2-1.0); Osmolality,Calculated 289.1 MOS/KG (273-304); Potassium 4.1 MMOL/L (3.5-5.1); Total Protein 5.4 G/DL (6.4-8.3)
[2018-06-14 05:59] LABS: Band Neutrophils 10 % (0-10); Eosinophils 3 % (0-10); Segmented Neutrophils 86 % (50-85); Total Cells Counted 100
[2018-06-14 06:00] LABS: Hypochromasia 1+; Ovalocytes Slight; Platelet Estimate Decreased
[2018-06-14] MEDS ORDERED: VANCOMYCIN INJ 1,000 MG in SODIUM CHLORIDE 0.9% 250 ML IV PRN (08:30)
[2018-06-14] MEDS: SODIUM CHLORIDE 0.9% 1,000 ML IV SCH (08:38)
[2018-06-14] MEDS: FOLIC ACID 1 MG TABLET PO SCH (08:39)
[2018-06-14] MEDS: DICYCLOMINE 10 MG CAPSULE PO SCH ×4 (08:39→20:47)
[2018-06-14] MEDS: ROSUVASTATIN 10 MG TABLET PO SCH (08:39)
[2018-06-14] MEDS: PANTOPRAZOLE 40 MG TABLET PO SCH (08:39)
[2018-06-14] MEDS: MAGNESIUM OXIDE 400 MG TABLET PO SCH ×2 (08:39→20:49)
[2018-06-14] MEDS: HYDROXYCHLOROQUINE 200 MG TABLET PO SCH ×2 (08:39→20:48)
[2018-06-14] MEDS: ASPIRIN 325 MG TABLET PO SCH (08:39)
[2018-06-14] MEDS: azaTHIOprine 50 MG TABLET PO SCH ×2 (08:39→20:48)
[2018-06-14] MEDS ORDERED: LOSARTAN 50 MG TABLET PO SCH (09:00)
[2018-06-14] MEDS ORDERED: VANCOMYCIN INJ 1,500 MG in SODIUM CHLORIDE 0.9% 500 ML IV ONE (10:00)
[2018-06-14] MEDS: ENOXAPARIN 30 MG/0.3 ML SYRINGE SUBCUT SCH (20:49)
[2018-06-15] MEDS: SODIUM CHLORIDE 0.9% 1,000 ML IV SCH ×4 (00:29→22:23)
[2018-06-15 05:58] LABS: Eosinophils # 0.6 10*3/uL (0.0-0.87); Eosinophils % 10.4 % (0.00-10.9); Immature Granulocytes % 0.5 %; Immature Granulocytes Absolute 0.03 #; Lymphocytes # 0.3 10*3/uL (1.4-4.0); Lymphocytes % 5.3 % (21.3-54.2); Mean Corpuscular HGB Conc 31.3 GM/DL (32-36); Mean Corpuscular Hemoglobin 29 PG (27-34); Mean Platelet Volume 11.4 FL (9.6-12.0); Monocytes # 0.4 10*3/uL (0.11-0.8); Monocytes % 7.8 % (1.7-12.7); Neutrophils # 4.2 10*3/uL (1.4-7.4); Red Blood Count 3.48 MC/CUMM (3.8-5.5); Red Cell Distribution Width 12.8 % (9.3-17.3); White Blood Count 5.5 T/CUMM (4-12)
[2018-06-15 06:12] LABS: Platelet Count 92 T/CUMM (130-400)
[2018-06-15 06:17] LABS: Calcium 7.5 MG/DL (8.5-10.1); Osmolality,Calculated 291.6 MOS/KG (273-304); Potassium 3.9 MMOL/L (3.5-5.1)
[2018-06-15 06:18] LABS: Band Neutrophils 6 % (0-10); Eosinophils 10 % (0-10); Lymphocytes 1 % (20-55); Segmented Neutrophils 75 % (50-85); Total Cells Counted 100
[2018-06-15 06:19] LABS: Hypochromasia 1+; Microcytosis Slight; Ovalocytes Slight; Platelet Estimate Decreased
[2018-06-15] MEDS ORDERED: LEVOFLOXACIN INJ 250 MG in PREMIX 1 EACH IV SCH (09:00)
[2018-06-15] MEDS: ROSUVASTATIN 10 MG TABLET PO SCH (09:08)
[2018-06-15] MEDS: MAGNESIUM OXIDE 400 MG TABLET PO SCH ×2 (09:08→21:57)
[2018-06-15] MEDS: DICYCLOMINE 10 MG CAPSULE PO SCH ×4 (09:08→21:57)
[2018-06-15] MEDS: FOLIC ACID 1 MG TABLET PO SCH (09:08)
[2018-06-15] MEDS: VANCOMYCIN INJ 1,250 MG in SODIUM CHLORIDE 0.9% 250 ML IV SCH (09:08)
[2018-06-15] MEDS: ASPIRIN 325 MG TABLET PO SCH (09:08)
[2018-06-15] MEDS: HYDROXYCHLOROQUINE 200 MG TABLET PO SCH ×2 (09:08→21:57)
[2018-06-15] MEDS: CLOPIDOGREL 75 MG TABLET PO SCH ×2 (09:08→09:10)
[2018-06-15] MEDS: azaTHIOprine 50 MG TABLET PO SCH ×2 (09:08→21:57)
[2018-06-15] MEDS: PANTOPRAZOLE 40 MG TABLET PO SCH (09:08)
[2018-06-15 21:16] LABS: Lymphocytes,Synovial Fluid 67 %; Neutrophils,Synovial Fluid 23 %
[2018-06-15] MEDS: NEBIVOLOL 10 MG TABLET PO SCH (21:59)
[2018-06-16] MEDS: SODIUM CHLORIDE 0.9% 1,000 ML IV SCH ×2 (05:36→11:22)
[2018-06-16 05:37] LABS: Basophils % 0.2 % (0.0-0.8); Eosinophils # 0.8 10*3/uL (0.0-0.87); Eosinophils % 16.8 % (0.00-10.9); Hematocrit 31.2 VOL% (35.7-47.0); Hemoglobin 9.7 GM/DL (12.0-16.0); Immature Granulocytes % 0.4 %; Immature Granulocytes Absolute 0.02 #; Lymphocytes # 0.4 10*3/uL (1.4-4.0); Lymphocytes % 8.1 % (21.3-54.2); Mean Corpuscular HGB Conc 31.1 GM/DL (32-36); Mean Corpuscular Hemoglobin 29 PG (27-34); Mean Platelet Volume 11.3 FL (9.6-12.0); Monocytes # 0.5 10*3/uL (0.11-0.8); Monocytes % 11.3 % (1.7-12.7); Neutrophils # 2.9 10*3/uL (1.4-7.4); Neutrophils % 63.2 % (38.7-73.9); Platelet Count 103 T/CUMM (130-400); Red Blood Count 3.39 MC/CUMM (3.8-5.5); Red Cell Distribution Width 12.8 % (9.3-17.3); White Blood Count 4.6 T/CUMM (4-12)
[2018-06-16 06:01] LABS: Calcium 7.9 MG/DL (8.5-10.1); Osmolality,Calculated 286.7 MOS/KG (273-304)
[2018-06-16 06:10] LABS: Band Neutrophils 2 % (0-10); Eosinophils 14 % (0-10); Hypochromasia 1+; Lymphocytes 6 % (20-55); Ovalocytes Slight; Platelet Estimate Decreased; Segmented Neutrophils 74 % (50-85); Total Cells Counted 100
[2018-06-16 06:11] LABS: Microcytosis Slight
[2018-06-16] MEDS ORDERED: PROPOFOL 200 MG/20 ML VIAL IV ONE (09:00)
[2018-06-16] MEDS ORDERED: LIDOCAINE 2% 5 ML VIAL ONE (09:00)
[2018-06-16] MEDS: VANCOMYCIN INJ 1,250 MG in SODIUM CHLORIDE 0.9% 250 ML IV SCH (09:13)
[2018-06-16] MEDS: DICYCLOMINE 10 MG CAPSULE PO SCH ×4 (10:11→20:35)
[2018-06-16] MEDS: NEBIVOLOL 10 MG TABLET PO SCH ×2 (13:54→20:35)
[2018-06-16] MEDS: azaTHIOprine 50 MG TABLET PO SCH ×2 (13:55→20:36)
[2018-06-16] MEDS: MAGNESIUM OXIDE 400 MG TABLET PO SCH ×2 (13:55→20:36)
[2018-06-16] MEDS: HYDROXYCHLOROQUINE 200 MG TABLET PO SCH ×2 (13:55→20:36)
[2018-06-16] MEDS: PANTOPRAZOLE 40 MG TABLET PO SCH (14:20)
[2018-06-16] MEDS: ROSUVASTATIN 10 MG TABLET PO SCH (14:20)
[2018-06-16] MEDS: FOLIC ACID 1 MG TABLET PO SCH (14:20)
[2018-06-16] MEDS: ASPIRIN 325 MG TABLET PO SCH (14:20)
[2018-06-16] MEDS: ACETAMINOPHEN 325 MG TABLET PO PRN (20:36)
[2018-06-17] MEDS: SODIUM CHLORIDE 0.9% 1,000 ML IV SCH ×4 (02:40→20:32)
[2018-06-17 04:56] LABS: Basophils % 0.2 % (0.0-0.8); Eosinophils # 0.9 10*3/uL (0.0-0.87); Eosinophils % 20.3 % (0.00-10.9); Hematocrit 30.9 VOL% (35.7-47.0); Hemoglobin 9.6 GM/DL (12.0-16.0); Immature Granulocytes % 0.7 %; Immature Granulocytes Absolute 0.03 #; Lymphocytes # 0.6 10*3/uL (1.4-4.0); Mean Corpuscular HGB Conc 31.1 GM/DL (32-36); Mean Corpuscular Hemoglobin 29 PG (27-34); Mean Platelet Volume 11.3 FL (9.6-12.0); Monocytes # 0.8 10*3/uL (0.11-0.8); Monocytes % 16.6 % (1.7-12.7); Neutrophils # 2.3 10*3/uL (1.4-7.4); Neutrophils % 50.2 % (38.7-73.9); Platelet Count 117 T/CUMM (130-400); Red Blood Count 3.36 MC/CUMM (3.8-5.5); Red Cell Distribution Width 12.6 % (9.3-17.3); White Blood Count 4.6 T/CUMM (4-12)
[2018-06-17 05:22] LABS: Calcium 7.9 MG/DL (8.5-10.1); Osmolality,Calculated 288.6 MOS/KG (273-304); Potassium 3.9 MMOL/L (3.5-5.1)
[2018-06-17 05:26] LABS: Calcium 7.9 MG/DL (8.5-10.1); Free T4 (Free Thyroxine) 1.3 NG/DL (0.76-1.46); Osmolality,Calculated 288.6 MOS/KG (273-304); Potassium 3.9 MMOL/L (3.5-5.1)
[2018-06-17 05:30] LABS: Band Neutrophils 2 % (0-10); Eosinophils 20 % (0-10); Lymphocytes 13 % (20-55); Segmented Neutrophils 48 % (50-85); Total Cells Counted 100
[2018-06-17 05:31] LABS: Hypochromasia 2+; Platelet Estimate Decreased
[2018-06-17] MEDS: FOLIC ACID 1 MG TABLET PO SCH (09:08)
[2018-06-17] MEDS: azaTHIOprine 50 MG TABLET PO SCH ×2 (09:08→20:33)
[2018-06-17] MEDS: DICYCLOMINE 10 MG CAPSULE PO SCH ×4 (09:08→20:32)
[2018-06-17] MEDS: ASPIRIN 325 MG TABLET PO SCH (09:09)
[2018-06-17] MEDS: NEBIVOLOL 10 MG TABLET PO SCH ×2 (09:09→20:32)
[2018-06-17] MEDS: PANTOPRAZOLE 40 MG TABLET PO SCH (09:09)
[2018-06-17] MEDS: MAGNESIUM OXIDE 400 MG TABLET PO SCH ×2 (09:09→20:32)
[2018-06-17] MEDS: MAGNESIUM SULF RIDER 2 GM in PREMIX 1 EACH IV PRN (09:09)
[2018-06-17] MEDS: HYDROXYCHLOROQUINE 200 MG TABLET PO SCH ×2 (09:09→20:32)
[2018-06-17] MEDS: ROSUVASTATIN 10 MG TABLET PO SCH (09:09)
[2018-06-17] MEDS: VANCOMYCIN INJ 1,250 MG in SODIUM CHLORIDE 0.9% 250 ML IV SCH (11:20)
[2018-06-17] MEDS: LACTOBACILLUS ACIDOPHILUS/BULGARICUS CHEW TABLET PO SCH (12:53)
[2018-06-17 14:35] LABS: % Iron Saturation 26.3 % (18-50)
[2018-06-17] MEDS: FLUTICASONE 220 MCG/PUFF INHALER 12 GM INH SCH (20:35)
[2018-06-18] MEDS: SODIUM CHLORIDE 0.9% 1,000 ML IV SCH ×2 (04:01→13:57)
[2018-06-18] MEDS: VANCOMYCIN INJ 1,250 MG in SODIUM CHLORIDE 0.9% 250 ML IV SCH (09:34)
[2018-06-18] MEDS: ASPIRIN 325 MG TABLET PO SCH (09:35)
[2018-06-18] MEDS: azaTHIOprine 50 MG TABLET PO SCH ×2 (09:35→20:23)
[2018-06-18] MEDS: DICYCLOMINE 10 MG CAPSULE PO SCH ×4 (09:35→20:23)
[2018-06-18] MEDS: ROSUVASTATIN 10 MG TABLET PO SCH (09:35)
[2018-06-18] MEDS: HYDROXYCHLOROQUINE 200 MG TABLET PO SCH ×2 (09:36→20:23)
[2018-06-18] MEDS: MAGNESIUM OXIDE 400 MG TABLET PO SCH ×2 (09:36→20:23)
[2018-06-18] MEDS: PANTOPRAZOLE 40 MG TABLET PO SCH (09:36)
[2018-06-18] MEDS: FLUTICASONE 220 MCG/PUFF INHALER 12 GM INH SCH ×2 (09:36→20:26)
[2018-06-18] MEDS: FOLIC ACID 1 MG TABLET PO SCH (09:36)
[2018-06-18] MEDS: NEBIVOLOL 10 MG TABLET PO SCH ×2 (09:36→20:23)
[2018-06-18] MEDS: LACTOBACILLUS ACIDOPHILUS/BULGARICUS CHEW TABLET PO SCH (09:37)
[2018-06-18] MEDS: ACETAMINOPHEN 325 MG TABLET PO PRN (22:16)
[2018-06-19] MEDS: SODIUM CHLORIDE 0.9% 1,000 ML IV SCH ×2 (02:43→08:37)
[2018-06-19] MEDS ORDERED: ASPIRIN EC 81 MG TABLET PO SCH (09:00)
[2018-06-19] MEDS: DICYCLOMINE 10 MG CAPSULE PO SCH (10:25)
[2018-06-19] MEDS: LACTOBACILLUS ACIDOPHILUS/BULGARICUS CHEW TABLET PO SCH (10:25)
[2018-06-19] MEDS: MAGNESIUM OXIDE 400 MG TABLET PO SCH (10:25)
[2018-06-19] MEDS: ROSUVASTATIN 10 MG TABLET PO SCH (10:25)
[2018-06-19] MEDS: FOLIC ACID 1 MG TABLET PO SCH (10:25)
[2018-06-19] MEDS: NEBIVOLOL 10 MG TABLET PO SCH (10:25)
[2018-06-19] MEDS: PANTOPRAZOLE 40 MG TABLET PO SCH (10:26)
[2018-06-19] MEDS: azaTHIOprine 50 MG TABLET PO SCH (10:26)
[2018-06-19] MEDS: HYDROXYCHLOROQUINE 200 MG TABLET PO SCH (10:26)
[2018-06-19] MEDS: FLUTICASONE 220 MCG/PUFF INHALER 12 GM INH SCH (10:27)
[2018-06-19] MEDS: VANCOMYCIN INJ 1,250 MG in SODIUM CHLORIDE 0.9% 250 ML IV SCH (10:28)
[2018-06-19 11:44] VITALS: BP 144/88
== END 2018-06-19 13:27 | disposition home health service (06) | DRG 69 ==
LOC: SUATTDRO → N.ED 03:29 → N.EDINP 06:03 → SUATTDRO 06:03 → N.5E 11:55
PROVIDERS: ADMIT Internal Medicine; ATTEND Internal Medicine